=== PATIENT | male | born 1955 | race Caucasian/White ===

== ENCOUNTER 2024-03-22 18:54 | Inpatient (IN) | payer MEDICARE, OTHER ==
[~2024-03-22] VITALS: Ht 185.4 cm; Wt 141.7 kg
[2024-03-22] MEDS ORDERED: Rivaroxaban 15 MG TAB PO SCH (19:11)
[2024-03-22] MEDS ORDERED: NS 1,000 ML IV SCH (19:15)
[2024-03-22] MEDS ORDERED: Polyethylene Glycol 3350 Powder 17 GM PACKET PO PRN (19:15)
[2024-03-22] MEDS ORDERED: Acetaminophen 325 MG TAB PO PRN (19:15)
[2024-03-22 19:24] VITALS: BP 138/76
[2024-03-22 19:36] VITALS: BP 138/76
[2024-03-22] MEDS ORDERED: Docusate Sodium 100 MG CAP PO SCH (21:00)
[2024-03-22 23:29] VITALS: BP 141/78
[2024-03-23 03:30] VITALS: BP 159/90
[2024-03-23 07:00] VITALS: BP 154/92
[2024-03-23 07:28] LABS: EOS # 0.26 K/mm3 (0.04-0.40); EOS % 3.1 % (0.0-4.0); HEMATOCRIT 32.5 % (42.0-52.0); HEMOGLOBIN 9.9 g/dL (13.5-18.0); LYMPH# 2.93 K/mm3 (1.50-4.00); MEAN CELL VOLUME 98 fl (78-100); MEAN CORPUSCULAR HEMOGLOBIN 30 pg (27-31); MEAN CORPUSCULAR HGB CONC 31 g/dL (33-37); MEAN PLATELET VOLUME 10.3 fl (7.4-10.4); MONO # 0.67 K/mm3 (0.20-0.80); NEU # 4.53 K/mm3 (1.40-6.50); PLATELET COUNT 156 K/mm3 (130-400); RED BLOOD COUNT 3.33 M/mm3 (4.20-5.60); RED CELL DISTRIBUTION WIDTH 19.1 % (11.5-14.5); WHITE BLOOD COUNT 8.4 K/mm3 (4.8-10.8)
[2024-03-23 08:04] LABS: ALBUMIN 2.9 g/dL (3.4-4.8)
[2024-03-23 08:05] LABS: CALCIUM 8.2 mg/dL (8.3-10.5)
[2024-03-23 08:06] LABS: TOTAL PROTEIN 5.9 g/dL (6.2-8.1)
[2024-03-23 08:08] LABS: TOTAL BILIRUBIN 0.5 mg/dL (0.2-1.2)
[2024-03-23] MEDS ORDERED: PARoxetine HCl 10 MG TAB PO SCH (09:00)
[2024-03-23] MEDS ORDERED: Metoprolol Tartrate 25 MG TAB PO SCH (09:00)
[2024-03-23] MEDS ORDERED: Clopidogrel 75 MG TAB PO SCH (09:00)
[2024-03-23] MEDS ORDERED: Metoclopramide 10 MG TAB PO SCH (09:00)
[2024-03-23] MEDS ORDERED: Amiodarone 200 MG TAB PO SCH (09:00)
[2024-03-23] MEDS ORDERED: Lisinopril 5 MG TAB PO SCH (09:00)
[2024-03-23 14:32] VITALS: BP 128/76
[2024-03-23 17:13] VITALS: BP 157/79
[2024-03-23 19:20] VITALS: BP 121/67
[2024-03-23 23:53] VITALS: BP 159/89
[2024-03-24 02:55] VITALS: BP 162/93
[2024-03-24 06:46] LABS: BASO # 0.01 K/mm3 (0.02-0.10); EOS # 0.29 K/mm3 (0.04-0.40); EOS % 4.1 % (0.0-4.0); HEMATOCRIT 31.5 % (42.0-52.0); HEMOGLOBIN 9.8 g/dL (13.5-18.0); LYMPH# 2.55 K/mm3 (1.50-4.00); MEAN CELL VOLUME 96 fl (78-100); MEAN CORPUSCULAR HEMOGLOBIN 30 pg (27-31); MEAN CORPUSCULAR HGB CONC 31 g/dL (33-37); MEAN PLATELET VOLUME 10.5 fl (7.4-10.4); MONO # 0.57 K/mm3 (0.20-0.80); NEU # 3.67 K/mm3 (1.40-6.50); PLATELET COUNT 146 K/mm3 (130-400); RED BLOOD COUNT 3.27 M/mm3 (4.20-5.60); WHITE BLOOD COUNT 7.1 K/mm3 (4.8-10.8)
[2024-03-24 06:48] LABS: ALBUMIN 2.8 g/dL (3.4-4.8)
[2024-03-24 06:49] LABS: CALCIUM 8.2 mg/dL (8.3-10.5)
[2024-03-24 06:51] LABS: TOTAL PROTEIN 5.7 g/dL (6.2-8.1)
[2024-03-24 06:52] LABS: TOTAL BILIRUBIN 0.7 mg/dL (0.2-1.2)
[2024-03-24 08:09] VITALS: BP 157/92
[2024-03-24 11:10] VITALS: BP 159/100
[2024-03-24 15:10] VITALS: BP 152/80
[2024-03-24] MEDS ORDERED: AMLODIPINE BESYL5 MG PO (15:45)
[2024-03-24] MEDS ORDERED: CARVEDILOL6.25 MG PO (15:46)
[2024-03-24] MEDS ORDERED: ISOSORBIDE30 MG PO (15:47)
[2024-03-24] MEDS ORDERED: CELEXA 20MG20 MG/TA1 PO (15:47)
[2024-03-24] MEDS ORDERED: FUROSEMIDE20 MG PO (15:47)
[2024-03-24] MEDS ORDERED: LISINOPRIL40 MG PO (15:48)
[2024-03-24] MEDS ORDERED: ATORVASTATIN CA20 MG PO (15:52)
[2024-03-24] MEDS ORDERED: KAPSPARGO SPRIN25 MG (18:13)
[2024-03-24] MEDS ORDERED: PAROXETINE HYDR20 MG PO (18:14)
[2024-03-24] MEDS ORDERED: SENNA8.6 M1 PO (18:15)
[2024-03-24] MEDS ORDERED: TYLENOL 325MG325 MG (18:15)
[2024-03-24] MEDS ORDERED: MIRALAX17 GM PO (18:16)
== END 2024-03-24 15:03 | disposition swing bed (61) | DRG 176 ==
LOC: MED/SURG 18:54
PROVIDERS: Family Medicine; ADMIT Family Medicine
DX: I26.99 Other pulmonary embolism without acute cor pulmonale (principal); Z68.41 Body mass index [BMI] 40.0-44.9, adult; I31.39 Other pericardial effusion (noninflammatory); I48.91 Unspecified atrial fibrillation; L89.319 Pressure ulcer of right buttock, unspecified stage; I25.10 Atherosclerotic heart disease of native coronary artery without angina pectoris; F32.A Depression, unspecified; E78.5 Hyperlipidemia, unspecified; I10 Essential (primary) hypertension; K21.00 Gastro-esophageal reflux disease with esophagitis, without bleeding; D64.9 Anemia, unspecified; K59.09 Other constipation; E66.01 Morbid (severe) obesity due to excess calories; R53.81 Other malaise; Z95.1 Presence of aortocoronary bypass graft
CPT/HCPCS: J7030

== ENCOUNTER → 2024-03-22 | Outpatient (CLI) | payer MEDICARE, OTHER ==
[~2024-03-22] MED LIST: CLOPIDOGREL75 M2 PO; CORDARONE200 MG/TAB PO; GOOD SENSE ASPI81 M1 PO; LIPITOR 80MG80 MG PO; LOPRESSOR 225 MG/TAB PO; METHOTREXATE2.5 MG PO; METOCLOPRAMIDE10 M5 PO; PANTOPRAZOLE SO40 MG PO; PAROXETINE HYDR20 MG PO; ZESTRIL10 M1 PO
[2024-03-22 15:01] LABS: EOS # 0.09 K/mm3 (0.04-0.40); EOS % 0.9 % (0.0-4.0); HEMATOCRIT 37.8 % (42.0-52.0); HEMOGLOBIN 11.6 g/dL (13.5-18.0); LYMPH# 2.09 K/mm3 (1.50-4.00); MEAN CELL VOLUME 96 fl (78-100); MEAN CORPUSCULAR HEMOGLOBIN 30 pg (27-31); MEAN CORPUSCULAR HGB CONC 31 g/dL (33-37); MEAN PLATELET VOLUME 10.1 fl (7.4-10.4); MONO # 0.71 K/mm3 (0.20-0.80); NEU # 7.33 K/mm3 (1.40-6.50); PLATELET COUNT 170 K/mm3 (130-400); RED BLOOD COUNT 3.92 M/mm3 (4.20-5.60); WHITE BLOOD COUNT 10.3 K/mm3 (4.8-10.8)
[2024-03-22 15:11] LABS: ALBUMIN 3.3 g/dL (3.4-4.8)
[2024-03-22 15:12] LABS: CALCIUM 8.7 mg/dL (8.3-10.5)
[2024-03-22 15:14] LABS: TOTAL PROTEIN 6.7 g/dL (6.2-8.1)
[2024-03-22 15:16] LABS: TOTAL BILIRUBIN 0.7 mg/dL (0.2-1.2)
== END ==
LOC: LAB 14:48
PROVIDERS: Nurse Practitioner
DX: E78.5 Hyperlipidemia, unspecified (principal); R53.83 Other fatigue; R06.09 Other forms of dyspnea

== ENCOUNTER 2024-03-24 15:03 | Inpatient (IN) | payer MEDICARE, OTHER ==
[~2024-03-24] VITALS: Ht 185.4 cm; Wt 139.4 kg
[2024-03-24] MEDS ORDERED: Polyethylene Glycol 3350 Powder 17 GM PACKET PO PRN (15:45)
[2024-03-24] MEDS ORDERED: AMLODIPINE BESYL5 MG PO (15:45)
[2024-03-24] MEDS ORDERED: Acetaminophen 325 MG TAB PO PRN (15:45)
[2024-03-24] MEDS ORDERED: CARVEDILOL6.25 MG PO (15:46)
[2024-03-24] MEDS ORDERED: ISOSORBIDE30 MG PO (15:47)
[2024-03-24] MEDS ORDERED: CELEXA 20MG20 MG/TA1 PO (15:47)
[2024-03-24] MEDS ORDERED: FUROSEMIDE20 MG PO (15:47)
[2024-03-24] MEDS ORDERED: LISINOPRIL40 MG PO (15:48)
[2024-03-24] MEDS ORDERED: ATORVASTATIN CA20 MG PO (15:52)
[2024-03-24] MEDS ORDERED: Rivaroxaban 15 MG TAB PO SCH ×2 (16:15→20:00)
[2024-03-24] MEDS ORDERED: Metoclopramide 10 MG TAB PO SCH ×2 (16:15→17:00)
[2024-03-24] MEDS ORDERED: Carvedilol 6.25 MG TAB PO SCH (17:00)
[2024-03-24] MEDS ORDERED: KAPSPARGO SPRIN25 MG (18:13)
[2024-03-24] MEDS ORDERED: PAROXETINE HYDR20 MG PO (18:14)
[2024-03-24] MEDS ORDERED: SENNA8.6 M1 PO (18:15)
[2024-03-24] MEDS ORDERED: TYLENOL 325MG325 MG (18:15)
[2024-03-24] MEDS ORDERED: MIRALAX17 GM PO (18:16)
[2024-03-24 20:48] VITALS: BP 116/75
[2024-03-24] MEDS ORDERED: Docusate Sodium 100 MG CAP PO SCH (21:00)
[2024-03-25 08:10] VITALS: BP 158/81
[2024-03-25] MEDS ORDERED: Clopidogrel 75 MG TAB PO SCH (09:00)
[2024-03-25] MEDS ORDERED: Isosorbide Mononitrate ER (24-HR) 30 MG TAB PO SCH (09:00)
[2024-03-25] MEDS ORDERED: amLODIPine 5 MG TAB PO SCH (09:00)
[2024-03-25] MEDS ORDERED: Furosemide 20 MG TAB PO SCH (09:00)
[2024-03-25] MEDS ORDERED: Citalopram 20 MG TAB PO SCH (09:00)
[2024-03-25] MEDS ORDERED: Lisinopril 20 MG TAB PO SCH (09:00)
[2024-03-25 17:09] VITALS: BP 95/57
[2024-03-25 19:22] VITALS: BP 131/76
[2024-03-26 07:39] VITALS: BP 141/85
[2024-03-26 19:37] VITALS: BP 101/39
[2024-03-27 08:17] VITALS: BP 133/74
[2024-03-27] MEDS ORDERED: Cholecalciferol (Vit D3) 25 MCG (1,000 Units) TAB PO SCH (11:50)
[2024-03-27] MEDS ORDERED: Citalopram 20 MG TAB PO ONE (18:30)
[2024-03-27 19:43] VITALS: BP 111/70
[2024-03-27] MEDS ORDERED: Miconazole 2% Topical Powder BOTTLE TP SCH (21:09)
[2024-03-28] MEDS ORDERED: Miconazole 2% Topical Powder BOTTLE TP PRN (01:00)
[2024-03-28 08:29] VITALS: BP 144/82
[2024-03-28] MEDS ORDERED: Citalopram 20 MG TAB PO SCH (09:00)
[2024-03-28 17:27] VITALS: BP 125/77
[2024-03-28 19:36] VITALS: BP 123/72
[2024-03-29 06:06] LABS: BASO # 0.01 K/mm3 (0.02-0.10); EOS # 0.24 K/mm3 (0.04-0.40); EOS % 3.5 % (0.0-4.0); HEMATOCRIT 32.5 % (42.0-52.0); HEMOGLOBIN 10.3 g/dL (13.5-18.0); LYMPH# 2.82 K/mm3 (1.50-4.00); MEAN CELL VOLUME 95 fl (78-100); MEAN CORPUSCULAR HEMOGLOBIN 30 pg (27-31); MEAN CORPUSCULAR HGB CONC 32 g/dL (33-37); MEAN PLATELET VOLUME 10.3 fl (7.4-10.4); NEU # 3.26 K/mm3 (1.40-6.50); PLATELET COUNT 210 K/mm3 (130-400); RED BLOOD COUNT 3.43 M/mm3 (4.20-5.60); RED CELL DISTRIBUTION WIDTH 18.8 % (11.5-14.5)
[2024-03-29 06:23] LABS: CALCIUM 8.5 mg/dL (8.3-10.5)
[2024-03-29 06:24] LABS: TOTAL PROTEIN 5.8 g/dL (6.2-8.1)
[2024-03-29 06:26] LABS: TOTAL BILIRUBIN 0.5 mg/dL (0.2-1.2)
[2024-03-29 07:00] VITALS: BP 155/79
[2024-03-29 19:14] VITALS: BP 116/55
[2024-03-30 07:27] VITALS: BP 145/87
[2024-03-30 19:35] VITALS: BP 113/77
[2024-03-31 07:15] VITALS: BP 131/85
[2024-03-31 07:30] LABS: CALCIUM 8.6 mg/dL (8.3-10.5)
[2024-03-31] MEDS ORDERED: CELEXA 20MG20 MG/TA1 PO (07:52)
[2024-03-31] MEDS ORDERED: XARELTO15 MG PO (07:54)
[2024-04-01] MEDS ORDERED: Ergocalciferol 1.25 MG (50,000 UNITS) CAPSULE PO SCH (09:00)
== END 2024-03-31 15:30 | disposition home health service (06) | DRG 947 ==
LOC: MED/SURG 15:03
PROVIDERS: ADMIT Family Medicine
PROC: 5A09357 Assistance with Respiratory Ventilation, Less than 24 Consecutive Hours, Continuous Positive Airway Pressure (ICD-10-PCS; principal; 2024-03-24)
DX: R53.81 Other malaise (principal); I26.99 Other pulmonary embolism without acute cor pulmonale; K22.10 Ulcer of esophagus without bleeding; I31.39 Other pericardial effusion (noninflammatory); I48.91 Unspecified atrial fibrillation; I10 Essential (primary) hypertension; L89.319 Pressure ulcer of right buttock, unspecified stage; I25.10 Atherosclerotic heart disease of native coronary artery without angina pectoris; M19.90 Unspecified osteoarthritis, unspecified site; D64.9 Anemia, unspecified; K21.9 Gastro-esophageal reflux disease without esophagitis; F32.A Depression, unspecified; E78.5 Hyperlipidemia, unspecified; Z79.82 Long term (current) use of aspirin; Z95.1 Presence of aortocoronary bypass graft

== ENCOUNTER → 2024-04-21 | Outpatient (CLI) | payer MEDICARE, OTHER ==
[~2024-04-21] MED LIST changes: +AMLODIPINE BESYL5 MG PO; +ATORVASTATIN CA20 MG PO; +CARVEDILOL6.25 MG PO; +CELEXA 20MG20 MG/TA1 PO; +FUROSEMIDE20 MG PO; +ISOSORBIDE30 MG PO; +KAPSPARGO SPRIN25 MG; +LISINOPRIL40 MG PO; +MIRALAX17 GM PO; +SENNA8.6 M1 PO; +TYLENOL 325MG325 MG; +XARELTO15 MG PO
[2024-04-21 14:41] LABS: BASO # 0.02 K/mm3 (0.02-0.10); EOS # 0.08 K/mm3 (0.04-0.40); EOS % 0.9 % (0.0-4.0); HEMATOCRIT 33.4 % (42.0-52.0); HEMOGLOBIN 10.5 g/dL (13.5-18.0); LYMPH# 2.36 K/mm3 (1.50-4.00); MEAN CELL VOLUME 95 fl (78-100); MEAN CORPUSCULAR HEMOGLOBIN 30 pg (27-31); MEAN CORPUSCULAR HGB CONC 31 g/dL (33-37); MONO # 0.41 K/mm3 (0.20-0.80); NEU # 6.48 K/mm3 (1.40-6.50); PLATELET COUNT 196 K/mm3 (130-400); RED BLOOD COUNT 3.53 M/mm3 (4.20-5.60); RED CELL DISTRIBUTION WIDTH 16.9 % (11.5-14.5); WHITE BLOOD COUNT 9.4 K/mm3 (4.8-10.8)
[2024-04-21 14:50] LABS: ALBUMIN 3.4 g/dL (3.4-4.8)
[2024-04-21 14:51] LABS: CALCIUM 8.6 mg/dL (8.3-10.5)
[2024-04-21 14:52] LABS: TOTAL PROTEIN 6.5 g/dL (6.2-8.1)
[2024-04-21 14:54] LABS: TOTAL BILIRUBIN 0.7 mg/dL (0.2-1.2)
== END ==
LOC: LAB 14:28
PROVIDERS: Nurse Practitioner
DX: I95.9 Hypotension, unspecified (principal)

== ENCOUNTER → 2024-05-26 | Outpatient (CLI) | payer MEDICARE, OTHER ==
[2024-05-26 22:42] LABS: FOLATE (FOLIC ACID) 19.7 ng/mL (2.0-20.0)
== END ==
LOC: LAB 13:38
PROVIDERS: Nurse Practitioner
DX: E55.9 Vitamin D deficiency, unspecified (principal); R53.83 Other fatigue

== ENCOUNTER → 2024-08-10 | Outpatient (CLI) | payer MEDICARE, OTHER ==
[2024-08-10 18:29] LABS: BASO # 0.03 K/mm3 (0.02-0.10); EOS # 0.22 K/mm3 (0.04-0.40); EOS % 2.6 % (0.0-4.0); HEMOGLOBIN 12.7 g/dL (13.5-18.0); LYMPH# 2.14 K/mm3 (1.50-4.00); MEAN CELL VOLUME 95 fl (78-100); MEAN CORPUSCULAR HEMOGLOBIN 30 pg (27-31); MEAN CORPUSCULAR HGB CONC 32 g/dL (33-37); MEAN PLATELET VOLUME 11.3 fl (7.4-10.4); MONO # 0.23 K/mm3 (0.20-0.80); PLATELET COUNT 175 K/mm3 (130-400); RED BLOOD COUNT 4.21 M/mm3 (4.20-5.60); RED CELL DISTRIBUTION WIDTH 16.7 % (11.5-14.5); WHITE BLOOD COUNT 8.5 K/mm3 (4.8-10.8)
[2024-08-10 18:30] LABS: ALBUMIN 3.6 g/dL (3.4-4.8)
[2024-08-10 18:32] LABS: CALCIUM 8.9 mg/dL (8.3-10.5)
[2024-08-10 18:35] LABS: TOTAL BILIRUBIN 1.3 mg/dL (0.2-1.2)
[2024-08-10 18:57] LABS: D-DIMER 2.05 mg/L FEU (0.15-0.50)
== END ==
LOC: LAB 18:05
PROVIDERS: Nurse Practitioner
DX: D50.9 Iron deficiency anemia, unspecified (principal); M79.605 Pain in left leg; M79.604 Pain in right leg; R73.9 Hyperglycemia, unspecified

== ENCOUNTER → 2024-08-11 | Outpatient (CLI) | payer MEDICARE, OTHER ==
[~2024-08-11] MED LIST changes: +Iohexol 350 - 100 ML VIAL IV ONE; +NS 100 ML IV SCH
== END ==
LOC: RAD 10:38
DX: Z13.6 Encounter for screening for cardiovascular disorders (principal); R22.40 Localized swelling, mass and lump, unspecified lower limb
CPT/HCPCS: Q9967